=== PATIENT | male | born 1955 | race Caucasian/White ===

== ENCOUNTER 2020-11-07 22:51 | Emergency (ER) | payer OTHER ==
[2020-11-07 23:06] VITALS: BMI 21.7
[2020-11-07] MEDS ORDERED: MECLIZINE HCL 25 MG TABLET (FP) PO ONE (23:26)
[2020-11-07] MEDS ORDERED: ONDANSETRON 4 MG/2 ML VIAL IVPUSH ONE (23:26)
[2020-11-07] MEDS ORDERED: SODIUM CHLORIDE 0.9% 500 ML INFUS.BAG IV ONE (23:27)
[2020-11-07] MEDS ORDERED: ONDANSETRON 4 MG/2 ML VIAL ONE (23:45)
[2020-11-07] MEDS ORDERED: MECLIZINE HCL 25 MG TABLET (FP) ONE (23:45)
[2020-11-08 00:30] LABS: CHLORIDE 106 mmol/L (98-107); POTASSIUM 3.7 mmol/L (3.5-5.1); SODIUM 140 mmol/L (136-145)
[2020-11-08 00:32] LABS: CALCIUM 8.6 mg/dL (8.5-10.1)
[2020-11-08 00:33] LABS: ALBUMIN 4.1 g/dl (3.4-5.0); ANION GAP 7 MMOL/L (8-16); BLOOD UREA NITROGEN 19.7 mg/dL (7-18); CO2 28 mmol/L (21-32); GLUCOSE,RANDOM 124 mg/dL (74-106); MAGNESIUM 2.1 mg/dL (1.8-2.4)
[2020-11-08 00:36] LABS: CREATININE 1.3 mg/dL (0.55-1.3); SGOT/AST 21 U/L (15-37)
[2020-11-08 00:38] LABS: TOT PROT 7.1 g/dl (6.4-8.2)
[2020-11-08 00:39] LABS: ALK PHOS 127 U/L (45-117)
[2020-11-08 00:44] LABS: BILIRUBIN,TOTAL 0.4 mg/dL (0.2-1); SGPT/ALT 27 U/L (13-61)
[2020-11-08 01:09] LABS: BASO % 0.4 % (0-2.0); EOS % 0.5 % (0-4.5); HEMATOCRIT 46.8 % (35.4-49); HEMOGLOBIN 15.7 GM/dL (11.7-16.9); LYMPH % 12.5 % (8-40); MCH 32.4 pg (25.7-33.7); MCHC 33.5 g/dl (32.0-35.9); MEAN CELL VOLUME 96.7 fl (80-96); MEAN PLT VOLUME 8.6 fl (7.5-11.1); MONO % 7.5 % (3.8-10.2); NEUT % 79.1 % (42.8-82.8); PLATELET COUNT 178 K/MM3 (134-434); RBC 4.84 M/mm3 (4.00-5.60); RDW 12.6 % (11.9-15.9); WHITE BLOOD COUNT 11.4 K/mm3 (4.0-10.0)
[2020-11-08] MEDS ORDERED: MECLIZINE HCL 25 MG TABLET (FP) PO ONE (01:12)
[2020-11-08] MEDS ORDERED: ONDANSETRON 4 MG/2 ML VIAL IVPUSH ONE (01:13)
[2020-11-08] MEDS ORDERED: MECLIZINE HCL 25 MG TABLET (FP) ONE (01:39)
[2020-11-08] MEDS ORDERED: ONDANSETRON 4 MG/2 ML VIAL ONE (01:39)
[2020-11-08] MEDS ORDERED: HYDROCHLOROTHIAZIDE 12.5 MG CAPSULE (FP) PO ONE (01:59)
[2020-11-08] MEDS ORDERED: SCOPOLAMINE HYDROBROMIDE 1 PATCH PATCH.TD72 TD SCH (02:00)
[2020-11-08] MEDS ORDERED: HYDROCHLOROTHIAZIDE 25 MG TABLET (FP) ONE (02:08)
[2020-11-08 03:13] VITALS: BP 126/64; PULSE 80; TEMP 98.8
[2020-11-08] MEDS ORDERED: diazePAM 5 MG TABLET PO ONE (03:44)
[2020-11-08] MEDS ORDERED: diazePAM 2 MG TABLET ONE (04:24)
[2020-11-08] MEDS ORDERED: ENOXAPARIN NA (PORCINE) 40 MG/0.4 ML DISP.SYRIN SQ SCH (10:00)
== END 2020-11-08 06:28 | disposition home or self-care (01) ==
LOC: JER 22:51 → UNDOADMIN 11-08 03:08 → JERBED 11-08 03:08 → JER 11-08 06:28
DX: R42 Dizziness and giddiness (principal)
CPT/HCPCS: 36415; 70450-TC; 80053; 82962; 83735; 84484; 85025; 93005; 93010; 99285-25; C9803; U0003